=== PATIENT | female | born 1955 | race Caucasian/White ===

== ENCOUNTER → 2024-01-24 12:04 | Outpatient (REF) | payer MEDICARE, OTHER, SELFPAY | LOC: RAD 12:04 | PROVIDERS: ATTENDING PHYSICIAN Internal Medicine Gastroenterology; FAMILY PHYSICIAN Family Medicine | DX: K52.9 Noninfective gastroenteritis and colitis, unspecified (principal) | CPT/HCPCS: 74019 ==

== ENCOUNTER → 2024-03-05 06:34 | Day surgery (SDC) | payer MEDICARE, OTHER, SELFPAY | LOC: GI 06:34 | PROVIDERS: ATTENDING PHYSICIAN Internal Medicine Gastroenterology | DX: K57.30 Diverticulosis of large intestine without perforation or abscess without bleeding (principal); K64.8 Other hemorrhoids; R19.4 Change in bowel habit | CPT/HCPCS: 45380; 88305 ==

== ENCOUNTER → 2024-06-11 06:41 | Outpatient (REF) | payer MEDICARE, OTHER, SELFPAY | LOC: RAD 06:41 | PROVIDERS: ATTENDING PHYSICIAN Internal Medicine Gastroenterology; FAMILY PHYSICIAN Family Medicine | DX: R74.8 Abnormal levels of other serum enzymes (principal); R15.9 Full incontinence of feces | CPT/HCPCS: 74270 ==

== ENCOUNTER → 2024-07-03 06:46 | Outpatient (REF) | payer MEDICARE, OTHER, SELFPAY | LOC: RAD 06:46 | PROVIDERS: ATTENDING PHYSICIAN Family Medicine | DX: Z87.891 Personal history of nicotine dependence (principal) | CPT/HCPCS: 71271 ==

== ENCOUNTER 2024-07-13 06:12 | Day surgery (SDC) | payer MEDICARE, OTHER, SELFPAY ==
[2024-07-09 09:22] VITALS: BMI 28.0
[2024-07-10 11:08] VITALS: BMI 28.0
[2024-07-13] VITALS (9 sets, daily range): BP systolic 115–140; BP diastolic 71–88; BMI 27.6
== END 2024-07-13 14:55 | disposition home or self-care (01) ==
LOC: GI 06:12
PROVIDERS: ATTENDING PHYSICIAN Internal Medicine Critical Care Medicine
DX: C34.12 Malignant neoplasm of upper lobe, left bronchus or lung (principal); R91.8 Other nonspecific abnormal finding of lung field
CPT/HCPCS: 31629; 31652; 31628; 31624; 31627; 31623; 31654; 88173; 88305; 71045; 76000; 81459; 87070; 87077; 87102; 87116; 87185; 87205; 88112; 88333; 88341; 88342; 94640; C1887

== ENCOUNTER → 2024-08-05 18:54 | Outpatient (REF) | payer MEDICARE, OTHER, SELFPAY | LOC: MRI 18:54 | PROVIDERS: ATTENDING PHYSICIAN Internal Medicine Hematology & Oncology; FAMILY PHYSICIAN Family Medicine; OTHER PHYSICIAN Internal Medicine Critical Care Medicine; REFERRING PHYSICIAN Radiology Radiation Oncology | DX: C34.92 Malignant neoplasm of unspecified part of left bronchus or lung (principal) | CPT/HCPCS: 70553; A9575 ==

== ENCOUNTER → 2024-09-04 08:48 | Outpatient (REF) | payer MEDICARE, OTHER, SELFPAY | LOC: HWWDC 08:48 | PROVIDERS: ATTENDING PHYSICIAN Internal Medicine; FAMILY PHYSICIAN Family Medicine; REFERRING PHYSICIAN Obstetrics & Gynecology | DX: M81.0 Age-related osteoporosis without current pathological fracture (principal); Z12.31 Encounter for screening mammogram for malignant neoplasm of breast; Z51.81 Encounter for therapeutic drug level monitoring | CPT/HCPCS: 77063; 77067; 77080; 77081 ==

== ENCOUNTER 2024-10-07 04:50 | Inpatient (IN) | payer MEDICARE, OTHER, SELFPAY ==
[2024-09-17 08:34] VITALS: BMI 29.1
[2024-09-17 09:24] LABS: % Basophils 0.8 % (0-2); % Eosinophils 1.8 % (0-6); % Immature Granulocytes 0.3 % (0-0.5); % Monocytes 9.6 % (1.7-9.3); % Neutrophils 55.5 % (42.2-75.2); Absolute Eosinophils 0.1 10^3/uL (0-0.7); Absolute Lymphocytes 1.3 10^3/uL (1.2-3.4); Absolute Monocytes 0.4 10^3/uL (0.1-0.6); Absolute Neutrophils 2.2 10^3/uL (1.4-6.5); Hematocrit 35.3 % (37.0-47.0); Hemoglobin 12.1 g/dL (12.0-16.0); Mean Corp Hgb Conc. 34.3 g/dL (33.0-37.0); Mean Corpuscular Volume 93.4 fL (81.0-99.0); Mean Platelet Volume 10.2 fL (7.4-10.4); Nucleated Red Blood Cells % 0 %; Platelet Count 178 10^3/uL (130-400); Red Blood Cell Count 3.78 10^6/uL (4.20-5.40); Red Cell Dist. Width 11.9 % (11.5-14.5)
[2024-09-17 09:33] LABS: INR 0.84
[2024-09-17 10:22] LABS: ALT (SGPT) 58 U/L (0-35); AST (SGOT) 54 U/L (14-36); Albumin 4.5 g/dl (3.5-5.0); Alkaline Phosphatase 50 U/L (38-126); Blood Urea Nitrogen 15 mg/dl (7-17); Calcium 9.2 mg/dl (8.4-10.2); Carbon Dioxide 25 mmol/L (22-30); Chloride 100 mmol/L (98-107); Direct Bilirubin 0.1 mg/dl (0.0-0.4); Estimated Creatinine Clearance 93 ml/min; Glucose 86 mg/dl (70-99); Potassium 4.7 mmol/L (3.5-5.1); Sodium 131 mmol/L (135-145); Total Bilirubin 0.5 mg/dl (0.2-1.3); eGFR > 60.00
[2024-09-17 10:26] LABS: Glycohemoglobin (HgbA1c) 4.8 % (4.0-5.6)
--- NOTE | 2024-09-17 10:26 | CM ---
Chart reviewed. Met with the patient in PAT. Reviewed preoperative and postoperative instructions, along with showering guidelines. Gave patient 2 soaps. Patient is agreeable to a visit by CT Transitional RN. Patient is independent of ADLS,
lives with her friend and her friend's and son, in a 2 STH, 5 [place], 0 DME. Plan is for the patient to return home with her friend and CT Transitional RN.
[2024-09-17 10:45] LABS: Urine Albumin Negative (Neg - Trace); Urine Bilirubin Negative (Negative); Urine Character Clear (Clear); Urine Color Straw; Urine Glucose Negative (Negative); Urine Ketone Negative (Negative); Urine Leukocyte Negative (Negative); Urine Nitrite Negative (Negative); Urine Occult Blood Negative (Negative); Urine Specific Gravity 1.005 (<1.030); Urine Urobilinogen Negative (Neg - 1+); Urine pH 6.5 (5.0-9.0)
[2024-10-07] VITALS (16 sets, daily range): BP systolic 104–135; BP diastolic 64–88; BMI 27.0
--- NOTE | 2024-10-07 05:44 | PTCARENOTE ---
Addendum entered by Marleen Kendall RN 10/07/24 06:07:
Pt confirmed NPO status.
Original Note:
Pt admitted to room 2268. Pt oriented to room and changed into gown. Weight and VS obtained. Pt clipped and cleaned w/ CHG wipes. Admission questions completed. Home medications confirmed. ABG drawn and sent. Advanced directive copied and added to
chart. CTPA to see pt for updated H&P. Call ring within reach.
--- NOTE | 2024-10-07 05:57 | W.CVOR.SURPR ---
CVOR Surgeon Immed Pre Op
-
I have examined this patient prior to performance of the scheduled procedure.
The patient's condition is unchanged from the time of the dictated/written History and
Physical and the patient is able to undergo the scheduled procedure.
RATS AMISHA Segmentectomy vs Lobectomy + LN Dissection
[2024-10-07 07:21] LABS: Urine Albumin Negative (Neg - Trace); Urine Bilirubin Negative (Negative); Urine Character Clear (Clear); Urine Color Yellow; Urine Glucose Negative (Negative); Urine Ketone Negative (Negative); Urine Leukocyte Negative (Negative); Urine Nitrite Negative (Negative); Urine Occult Blood Negative (Negative); Urine Urobilinogen Negative (Neg - 1+)
--- NOTE | 2024-10-07 08:33 | CM ---
Reviewed chart. Miss Pinon is in the operating room today. Prior to admission she resides with her friend and friends family in a two story natalya with five steps to enter. Prior to admission she was independent with ambulation and adls. She does
not have any DME in the home. Medical work-up in progress. The discharge plan is to return home with her friend and friends family with a home visit by the Transitional Care Nurse when medically stable.
--- NOTE | 2024-10-07 10:04 | W.PN.CT.SURG ---
CT Surgery Operative Note
-
THORACIC SURGERY OPERATIVE REPORT
Preoperative Diagnosis: Adenocarcinoma of the left upper lobe
Postoperative Diagnosis: Same
Procedure(s) Performed:
1. Robotic assisted thoracic surgery (RATS) left upper lobe trisegmentectomy
2. Radical lymph node dissection
3. Intercostal nerve block with mepivacaine mixture interspaces 4 through 8
Date of Surgery: 10/07/2024
Comorbidities:
1. 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
2. Squamous cell carcinoma of the cervix
3. Remote history of gastric ulcer and chronic NSAID usage
4. Colonic polyps
5. Depression/anxiety
6. History of tobacco abuse, [id number] smoking history, quit in 2020
7. Family history of cancers
Attending Surgeon: Alton Joyce MD, MS
Assistants: Sabra Crooks PA-C (present and necessary to special event assistant, exchanging robotic instruments, retraction, suction, exposure, suture management, and wound closure under my direction)
Anesthesiology: Suresh Chavez MD and Ariella Madrid CRNA
Scrub and Circulating RNs: Mitzy Stoner RN, Evette Stacy RN
Anesthesia: Dual Lumen GETA
EBL: 60 cc
Products: None
Indication(s) for Procedures: This is a 68-year-old female who was found to have a left upper lobe irregularly shaped lesion that underwent a robotic luminal bronchoscopy. Biopsy results came back as adenocarcinoma. TBNA and lavage also came back
as positive for malignancy. PET/CT imaging and EBUS evaluation of the lymph nodes did not reveal any adenopathy. She was referred to me for consideration of left upper lobe resection with lymph node evaluation.
Findings: There were no intraoperative intrathoracic lesions concerning for metachronous disease. She had well-defined fissures. Given the location of the left upper lobe lesion in the apex, we were able to perform a trisegmentectomy using
perfusion lines with ICG to demarcate the arterial branches perfusing the S1/S2/S3 segments of the left upper lobe. There was no air leak at the conclusion of the case, her hilum was reinforced with CoSeal. Multiple lymph nodes were harvested from
around her hilum and very stations. The remaining lingular segment of her left upper lobe inflated fully at the conclusion of the case. The remaining left lower lobe inflated fully at the conclusion of the case.
Specimen(s):
Station 9, x 4 nodes
Station 8, x 1 nodes
Station 10, x 3 nodes
Station 11, x 3 nodes
Station 5/6, x 1 nodes
Station 7, x 1 nodes
Left upper lobe trisegmentectomy [S1/S2/S3] lobe - on manual palpable, there was a significant margin from the target
Description of Procedure: The patient was taken to the operating room. Induction via general anesthesia with endotracheal intubation was performed and peripheral venous access and arterial monitoring were inserted. Their identity and procedure to be
performed were verified and they were positioned with the left side up on the operating table. The patient was then prepped and draped in a sterile fashion. A preoperative time-out was performed with all members of the team present. A Veress needle
was used to insufflate the chest after isolating the lung. An 8 mm port was placed in the midaxillary line at approximately the eighth intercostal space and confirmed to be intrathoracic without significant pulmonary injury. The chest was surveyed
for any evidence of metastatic disease. Patient tolerate insufflation without complication. 2 additional 12 mm trocars were placed on either side under camera guidance and a third 8 mm trocar was placed along the back. A 12 mm assistant pressman port was
placed in the 11th intercostal space above the insertion of the diaphragm. An intercostal nerve block was performed at intercostal spaces 4 through 8 with 5cc in each space.
The thoracic cavity was inspected for evidence of metastatic disease. None was observed. We started with mobilization of the inferior pulmonary ligament. We worked our way clockwise dissecting out the hilum and harvest any lymph nodes identified.
Once the posterior hilum was dissected, I worked toward the fissure which was well defined. At this point the posterior ascending was isolated along with the pulmonary veins leading to the apical segment of the lung. The lingular segmental arteries
were visualized and spared. The posterior ascending was first dividied, followed the superior segment veins. This allowed access to the trucus pulmonary artery which was bifurcating. This was divided. Next the bronchus to the upper segment was
clamped and test inflation was performed and found unobstructed flow to the remaining left lower lobe and the remaining lingular segment of the left upper lobe. At this point under firelfy, ICG was injected, and perfusion lines were defined
isolating the upper trisegment. I then divided the lung parenchyma with 60mm green load staplers. The specimen was displaced toward the apex while a chest tube was inserted and placed laterally towards the apex. CoSeal was used to reinforce the
staple lines and hilum. The segment was then placed into a specimen bag and extracted from the chest cavity. After confirming hemostasis, the lung was fully inflated and all ports were removed. Incisions were closed in 3 layers including the
fascia, dermal, and epidermis. Additional local anesthesia was injected into all incision sites. The skin wound was cleansed and sealed with Dermabond glue.
All instrument, sponge, and needle counts were confirmed to be correct x 2 at the end of the operation. The patient was transferred to the cardiac intensive care unit extubated in critical but stable condition.
I, Dr. Alton Joyce, was present, scrubbed for, and performed all critical elements of this procedure.
Alton Joyce MD, MS
Cardiothoracic Surgeon
[facility]
This operative dictation was created using the [employer] dictation system. Please excuse any grammatical, typographical, or 'sound alike' errors
[2024-10-07] MEDS: DILAUDID 0.5 MG IV ×4 (10:44→19:56)
[2024-10-07] MEDS: SENOKOT PO (11:40)
[2024-10-07] MEDS: FEOSOL PO (11:40)
[2024-10-07] MEDS: VITAMIN D3 (cholecalciferol) PO (11:41)
[2024-10-07] MEDS: THERAGRAN PO (11:41)
[2024-10-07] MEDS: ANCEF IV (11:44)
--- NOTE | 2024-10-07 12:15 | PTCARENOTE ---
Received pt from [employer], JEN x 3, denies complaint at present. NSR w/ first degree AVB on monitor. 3 L NC 100% . Chest tube x 1 to water seal. No air leaks or crepitus noted. Surgical sites well approximated with surgical adhesive. Old
drainage noted on CT dressing. VSS. EKG obtained. Friend at bedside.
--- NOTE | 2024-10-07 12:35 | CON.PUL ---
Consultation
Consultation Request
Date/Time Consultation Requested: 10/07/2024
Date/Time Consultation Performed: 10/07/2024
Performing Provider: Donnie
Reason for Consultation: Nodule biopsy
Medical History
-
History of Present Illness:
Patient is a 68-year-old female with previous history of recently diagnosed primary lung adenocarcinoma status post robotic bronchoscopy biopsy on 07/13/2024. Outpatient PET scan demonstrating no evidence of mediastinal disease or distant
metastases. She presents for elective left upper lobectomy as part of her curative treatment. Underwent robotic assisted thoracic surgery with left upper lobe tries segmentectomy with radical lymph node dissection on 10/07/2024, postoperatively
[facility].
Follows with Dr Connors in the office.
Past Medical History
Past Medical History: Other (see list below)
Social History
Tobacco: Former Smoker
Alcohol: None
Drug: None
Family History
Family History: Reviewed & Not Pertinent
Allergies / Home Medications
Allergies
Allergy/AdvReac Type Severity Reaction Status Date / Time
latex Allergy Rash Verified 09/14/24 09:24
Home Medications
�Medication �Instructions �Recorded �Confirmed �Last Taken �Type
gabapentin 600 mg tablet 400 mg PO TID 07/11/16 10/07/24 09/29/24 History
ascorbic acid (vitamin C) 1,000 mg 1 g PO DAILY 07/10/24 10/07/24 09/29/24 History
tablet (Vitamin C)
cholecalciferol (vitamin D3) 50 50 mcg PO DAILY 07/10/24 10/07/24 09/29/24 History
mcg (2,000 unit) tablet (Vitamin
D3)
daridorexant 25 mg tablet (Quviviq) 50 mg PO HS 07/10/24 10/07/24 08/30/24 History
estradiol 0.5 mg tablet 0.5 mg PO DAILY 07/10/24 10/07/24 09/08/24 History
lorazepam 1 mg tablet (Ativan) 1 mg PO PRN PRN anxiety 07/10/24 10/07/24 09/23/24 History
mecobalamin (vitamin B12) 1,000 1,000 mcg sublingual DAILY 07/10/24 10/07/24 09/29/24 History
mcg disintegrating
tablet,sublingual
medroxyprogesterone 2.5 mg tablet 2.5 mg PO DAILY 07/10/24 10/07/24 09/08/24 History
multivitamin 1 tab PO DAILY 07/10/24 10/07/24 09/29/24 History
vitamin B complex 1 cap PO DAILY 07/10/24 10/07/24 09/29/24 History
vitamin K2 100 mcg capsule 100 mcg PO DAILY 07/10/24 10/07/24 09/29/24 History
denosumab 60 mg/mL subcutaneous 60 mg SC [id number] 09/14/24 09/14/24 09/11/24 History
syringe (Prolia)
ferrous sulfate 325 mg (65 mg 325 mg PO DAILY 09/14/24 10/07/24 Unknown History
iron) tablet (Iron (ferrous
sulfate))
Review of Systems
-
History Source: Patient
All other systems: Negative unless noted
Vitals / Labs / Diagnostic Testing
Vital Signs
Temp Pulse Resp BP Pulse Ox
98.6 F 65 20 119/76 100
10/07/24 12:00 10/07/24 12:00 10/07/24 12:00 10/07/24 11:45 10/07/24 12:00
Lab Data
09/17/24 09:06
09/17/24 09:06
Diagnostic Testing:
Physical Exam
-
HEENT: Normocephalic, Anicteric and Moist Mucous Membranes
Cardiovascular: S1/S2 and Regular Rhythm
Respiratory: Clear, Non-Labored Respirations and Other (chest tube)
GI: Soft, Non Distended and Non Tender
Neurology: Awake, Alert, Oriented and No Motor Deficits
Skin: Warm, Dry and Good Color
General: Comfortable and Other (NAD)
Assessment
-
Patient is a 68-year-old female with previous history of recently diagnosed primary lung adenocarcinoma status post robotic bronchoscopy biopsy on 07/13/2024. Outpatient PET scan demonstrating no evidence of mediastinal disease or distant
metastases. She presents for elective left upper lobectomy as part of her curative treatment. Underwent robotic assisted thoracic surgery with left upper lobe tries segmentectomy with radical lymph node dissection on 10/07/2024, postoperatively
transferred to [facility] for recovery.
Primary lung adenoca s/p RATS/left upper lobe tries segmentectomy with radical lymph node dissection on 10/07/2024
Postop iatrogenic PTX s/p chest tube
Lung nodule status post bronchoscopy 07/13/2024
Conditions present prior to admission
Squamous cell carcinoma status post vulvectomy x 2/HPV+
Remote history of gastric ulcer and chronic NSAID usage
GERD
Colonic polyps
Depression/anxiety
History of tobacco abuse, [id number] smoking history, quit in 2020
Hepatitis C
Insomnia
Lumbar radiculopathy
Plan
No oxygen was needed on admission, currently saturating >90% on RA
Prior history of lung disease is noted including former smoker/lung cancer
Prior PFTs obtained in the office demonstrated normal lung function
Recently diagnosed with primary lung adenocarcinoma following bronchoscopy 07/13/2024
Underwent left upper lobectomy without significant complication 10/07/2024
Chest tube in place, further management per team
Prior imaging reviewed
Pain control, out of bed when tolerated
Diet advancement per team
No prior cardiac history not maintained on medications
No prior echo for review
Smoking history noted-50 pack years
Encourage continued smoking cessation
She is being followed by [place] as well for further treatments and neck steps as an outpatient
Will need outpatient pulmonary evaluation in our office at regular routine visit
Reviewed with patient
We will follow
Diagnostic Data
Chest X-Ray: 10/07/24- No acute disease of the chest.
CT Scan: PET/CT 07/23/24- There is a 2.5 cm linear nodular area of parenchymal airspace disease in the apical segment of the left upper lobe consistent with the patient's known previously biopsied adenocarcinoma. This lesion measures only 2.1 SUV
max suggesting probable low-grade malignancy. There are no other focal areas of abnormal FDG avidity in the chest. As on the prior CT examination, there is mild subpleural interstitial fibrosis. The smaller subpleural nodules seen on the 07/09/2024
CT chest are not well visualized on this examination and are below the lower limits of PET evaluation.
There is no FDG avid adenopathy in the chest.
Echo:
PFT's: 09/07/2024-FEV1 3.06 L 129%, FVC 4.2 L 135%, ratio 73. TLC 5.73 L 116% DLCO 82%-normal
Reports and relevant images were personally reviewed.
Total time spent on this consultation __75__ minutes which includes review of history, physical exam, medications, laboratory data, personal review of imaging, extensive review of outpatient records, discussion with care team and respiratory therapy.
[2024-10-07] MEDS: VITAMIN C PO (13:04)
[2024-10-07] MEDS: HEPARIN SC (13:12)
[2024-10-07] MEDS: ANCEF 10 IV (13:12)
[2024-10-07] MEDS: TORADOL 15 MG IV ×2 (13:12→23:24)
[2024-10-07] MEDS: ANCEF 5 IV ×2 (15:45→23:23)
[2024-10-07] MEDS: NEURONTIN 400 MG PO ×2 (15:50→22:15)
--- NOTE | 2024-10-07 18:24 | PTCARENOTE ---
OOb ambulated to bathroom with assist x 1 on room air. Tolerated w/o issue no dumping noted from chest tube. OLdr drainage marked on dressing site. Pain at acceptable level post level after dilaudid.
[2024-10-07] MEDS: HEPARIN 5000 UNITS SC (19:57)
[2024-10-07] MEDS: SENOKOT 8.6 MG PO (19:58)
--- NOTE | 2024-10-07 20:00 | PTCARENOTE ---
Assumed care of patient at 1900. Patient found resting in bed at time of assessment. Patient is AOx4, follows commands appropriately, moves all extremities. Lung sounds are diminished in the L base, saO2 94% on RA, L posterior CT attached to water
seal. Patient is SR with first deg AV block, has normal palpable pulses and no observable edema. Patient has active BS throughout all four quadrants and is voiding clear yellow in the bathroom. There is a 4x4 gauze dressing present over L back where
CT is located with some sanguineous drainage CT PAs aware. There is a R FA 18G PIV and L FA 18G PIV available for intermittent infusion. VSS. Given 0.5 dilaudid for pain. Call ring within reach.
--- NOTE | 2024-10-08 00:46 | PTCARENOTE ---
assumed care of pt from 7-11 RN. plan of care discussed. L CT site with noted drainage present at time of walking rounds w/o tidaling, crepitus. Small air leak noted. x4 puncture sites CDI, AIR HOLE DRILLER with Surgi glue present. PRN pain medication provided
as needed. Pt verbalized understanding of plan. SR with first degree on the monitor. Use of IS encouraged.
--- NOTE | 2024-10-08 01:10 | PTCARENOTE ---
- late entry: assumed care of pt from 7-11 RN. plan of care discussed. L CT site with noted drainage present at time of walking rounds w/ tidaling but no crepitus or air leak. x4 puncture sites CDI, ASHLYN with Surgi glue present. PRN pain medication
provided as needed. Pt verbalized understanding of plan. SR with first degree on the monitor. Use of IS encouraged.
[2024-10-08] MEDS: ROXICODONE 2.5 MG PO ×3 (02:25→12:11)
[2024-10-08 02:37] VITALS: BP 129/74
[2024-10-08 02:48] LABS: Hematocrit 32.2 % (37.0-47.0); Hemoglobin 11.4 g/dL (12.0-16.0); Mean Corp Hgb Conc. 35.4 g/dL (33.0-37.0); Mean Corpuscular Hgb 32.6 pg (27.0-31.0); Mean Platelet Volume 10.5 fL (7.4-10.4); Platelet Count 161 10^3/uL (130-400); Red Cell Dist. Width 12.3 % (11.5-14.5); White Blood Cell Count 8.1 10^3/uL (4.8-10.8)
[2024-10-08 03:15] LABS: Blood Urea Nitrogen 13 mg/dl (7-17); Calcium 8.3 mg/dl (8.4-10.2); Carbon Dioxide 20 mmol/L (22-30); Chloride 101 mmol/L (98-107); Estimated Creatinine Clearance 89 ml/min; Glucose 101 mg/dl (70-99); Magnesium 2.2 mg/dl (1.6-2.3); Potassium 4.8 mmol/L (3.5-5.1); Sodium 129 mmol/L (135-145); eGFR > 60.00
--- NOTE | 2024-10-08 04:44 | W.PN.CT ---
Today's Communication / Plan
-
-pod #1
-no issues overnight
-CXR this am appears stable
-L CT on WS postop. Had small air leak with cough last night and no air leak this am
-follow CXR
Assessment / Plan
-
- s/p Robotic assisted thoracic surgery (RATS) left upper lobe trisegmentectomy; Radical lymph node dissection on 10/07/[address] Joyce, pod #1
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
- Squamous cell carcinoma of the cervix
- Remote history of gastric ulcer and chronic NSAID usage
- Colonic polyps
- Depression/anxiety
- History of tobacco abuse, [id number] smoking history, quit in 2020
- Family history of cancers
- Acute postop atelectasis
Discussed patient care with: Nursing and Care Team
Subjective
-
Date of Service: October 08, 2024
Objective Data
-
Lab Results
10/08/24 02:33
10/08/24 02:33
PT 12.0 Sec (11.4-14.6) 09/17/24 09:06
INR 0.84 09/17/24 09:06
APTT 30.0 Sec (23.4-35.0) 09/17/24 09:06
Vital Signs
Vital Signs
Temp Pulse Resp BP Pulse Ox
98.8 F 59 18 129/74 95
10/08/24 02:50 10/08/24 02:37 10/08/24 02:50 10/08/24 02:37 10/08/24 02:[address]
CT Intake/Output/Weight
10/07/24 10/07/24 10/08/24
06:59 18:59 06:59
Intake Total 630 / 870 240 / 870
Output Total 110 / 1430 1320 / 1430
Balance 520 / -560 -1080 / -560
SaO2: 95
Physical Exam
-
General: Awake and AOx3
Cardiovascular: Regular rate & rhythm, No Murmurs and No Rub
Respiratory: Clear and Decreased Breath Sounds
Incision: Dressing Intact (old drainage on dressing without change)
Extremities: No Edema
Abdomen: soft, nontender, nondistended, + bowel sounds
Data Reviewed
-
Lab Results: Results Reviewed
Medications: Active Meds Reviewed
Chest X-Ray: Report Reviewed and Image Reviewed
ECG: Report Reviewed and Image Reviewed
--- NOTE | 2024-10-08 07:17 | W.PN.PUL3 ---
Today's Communication / Plan
-
Doing well, stable on RA, sitting in chair
Chest tube with minimal leak, discontinue per team
Pain control, encouraged OOB/IS
Discharge planning once chest tube is discontinued
FU OP Pulm office
Assessment
-
Patient is a 68-year-old female with previous history of recently diagnosed primary lung adenocarcinoma status post robotic bronchoscopy biopsy on 07/13/2024. Outpatient PET scan demonstrating no evidence of mediastinal disease or distant
metastases. She presents for elective left upper lobectomy as part of her curative treatment. Underwent robotic assisted thoracic surgery with left upper lobe tries segmentectomy with radical lymph node dissection on 10/07/2024, postoperatively
transferred to [facility] for recovery.
Primary lung adenoca s/p RATS/left upper lobe tries segmentectomy with radical lymph node dissection on 10/07/2024
Postop iatrogenic PTX s/p chest tube
Lung nodule status post bronchoscopy 07/13/2024
Conditions present prior to admission
Squamous cell carcinoma status post vulvectomy x 2/HPV+
Remote history of gastric ulcer and chronic NSAID usage
GERD
Colonic polyps
Depression/anxiety
History of tobacco abuse, 66-[id number]-uvob smoking history, quit in 2020
Hepatitis C
Insomnia
Lumbar radiculopathy
Plan
No oxygen was needed on admission, currently saturating >90% on RA
Prior history of lung disease is noted including former smoker/lung cancer
Prior PFTs obtained in the office demonstrated normal lung function
Recently diagnosed with primary lung adenocarcinoma following bronchoscopy 07/13/2024
Underwent left upper lobectomy without significant complication 10/07/2024
Chest tube in place, further management per team -- clamp and discontinue possibly later this PM
Prior imaging reviewed
Pain control, out of bed when tolerated
Diet advancement per team
No prior cardiac history not maintained on medications
No prior echo for review
Smoking history noted-50 pack years
Encourage continued smoking cessation
She is being followed by [place] as well for further treatments and neck steps as an outpatient
Will need outpatient pulmonary evaluation in our office at regular routine visit
Reviewed with patient
Diagnostic Data
Chest X-Ray: 10/07/24- No acute disease of the chest.
CT Scan: PET/CT 07/23/24- There is a 2.5 cm linear nodular area of parenchymal airspace disease in the apical segment of the left upper lobe consistent with the patient's known previously biopsied adenocarcinoma. This lesion measures only 2.1 SUV
max suggesting probable low-grade malignancy. There are no other focal areas of abnormal FDG avidity in the chest. As on the prior CT examination, there is mild subpleural interstitial fibrosis. The smaller subpleural nodules seen on the 07/09/2024
CT chest are not well visualized on this examination and are below the lower limits of PET evaluation.
There is no FDG avid adenopathy in the chest.
Echo:
PFT's: 09/07/2024-FEV1 3.06 L 129%, FVC 4.2 L 135%, ratio 73. TLC 5.73 L 116% DLCO 82%-normal
Reports and relevant images were personally reviewed.
Total time spent on this encounter __51__ minutes which includes review of history, physical exam, medications, laboratory data, personal review of imaging, extensive review of outpatient records, discussion with care team and respiratory therapy.
Subjective Data
-
Date of Service:
Date of Service: October 08, 2024
Chief Complaint: Pulmonary Follow Up
Subjective:
no events ON, sitting in chair
stable on RA, chest tube in place with minimal leak
Objective Data
Data Reviewed
Vital Signs / I&O / Oxygen:
Vital Signs
Temp Pulse Resp BP Pulse Ox
98.8 F 59 18 129/74 95
10/08/24 02:50 10/08/24 02:37 10/08/24 02:50 10/08/24 02:37 10/08/24 04:49
Intake and Output
10/07/24 10/08/24 10/09/24
06:59 06:59 06:59
Intake Total 870 / 870
Output Total 1460 / 1460
Balance -590 / -590
SaO2 95
Nasal Cannula flow liters per 2
minute
Physical Exam
General: Comfortable and Other (NAD)
HEENT: Normocephalic, Anicteric and Moist Mucous Membranes
Cardiovascular: S1-S2 and Regular Rhythm
Respiratory: Clear, Non-Labored Respirations and Chest Tube
GI: Soft, Non Distended and Non Tender
Neurology: Awake, Alert, Oriented and No Motor Deficits
Skin: Warm, Dry and Good Color
Labs/Micro/Reports
Lab Data
10/08/24 02:33
10/08/24 02:33
[2024-10-08 07:28] VITALS: BMI 27.7
[2024-10-08 07:52] VITALS: BP 125/79
[2024-10-08] MEDS: LIDOCAINE 4% PATCH 1 PATCH TOPICAL (09:10)
[2024-10-08] MEDS: FEOSOL 325 MG PO (09:11)
[2024-10-08] MEDS: VITAMIN B-12 1000 MCG PO (09:11)
[2024-10-08] MEDS: VITAMIN C 1000 MG PO (09:11)
[2024-10-08] MEDS: SENOKOT 8.6 MG PO (09:11)
[2024-10-08] MEDS: LOPRESSOR 12.5 MG PO (09:11)
[2024-10-08] MEDS: NEURONTIN 400 MG PO ×2 (09:11→15:50)
[2024-10-08] MEDS: THERAGRAN 1 TABLET PO (09:12)
[2024-10-08] MEDS: HEPARIN 5000 UNITS SC (09:12)
[2024-10-08] MEDS: VITAMIN D3 (cholecalciferol) 50 MCG PO (09:12)
[2024-10-08] MEDS: FLUSH (NSS) 1 FLUSH IV (09:12)
[2024-10-08] MEDS: LASIX 40 MG IV (09:13)
[2024-10-08] MEDS: ANCEF 5 IV (09:13)
--- NOTE | 2024-10-08 09:40 | PTCARENOTE ---
assumed care of pt from previous shift RN, sinus rhythm on tele, VSS. + peripheral pulses, no edema noted. Lungs diminished, pox 95% on RA. +bs, tolerating PO intake. Voids spontaneously, adequate. Right pleural CTs to water seal, pt medicated for
pain. plan of care reviewed and questions encouraged.
--- NOTE | 2024-10-08 10:48 | CM ---
Reviewed chart. Met with Miss Pinon to review discharge plans. She states she is feeling well. She states she ambulated to the bathroom and she felt steady. She states prior to admission she resides with her friend, friends spouse and their 16 year
old son. She states they reside in a three story home with four steps to enter. She states she has to go up a full flight of steps to ge to bedroom/full bathroom. She states prior to admission she was independent with ambulation and adls. She
states she has a single point cane at home, but currently not using it. She states she has a Prescription plan and uses [facility]. She states her friend, Elba will be home Saturday, Saturday and Saturday to assist in her care if needs. Elba works
outside the home but is very close to the house. We reviewed a home visit by the Transitional Care Nurse. She is agreeable to a home visit. Medical work-up in progress. The discharge plan is to return home with her friends family and a home visit
by the Transitional Care Nurse when medically stable.
[2024-10-08] MEDS: TORADOL 15 MG IV (12:10)
[2024-10-08 12:20] VITALS: BP 114/83
--- NOTE | 2024-10-08 12:28 | PTCARENOTE ---
VSS, sinus rhythm on tele, pt medicated for pain, minimal output from CT.
[2024-10-08 15:38] VITALS: BP 112/76
--- NOTE | 2024-10-08 16:07 | PTCARENOTE ---
pt tolerated walk, VSS, sinus rhythm maintained on tele. CT remains clamped.
--- NOTE | 2024-10-08 17:44 | W.PN.UPDATE ---
Update Note
Progress Note Update
AMISHA chest tube was clamp for several hours. Repeat CXR did not show a large ptx. Plan was discussed with Dr. Joyce. CT was removed with suction. Pull was uneventful and green stitch was tied down. Patient will get a repeat CXR in one week and get her
stitch removed at her next office visit.
Patient will be discharged later tonight and was instructed to return to the ER if she has difficulty breathing or increased crepitus. She expressed understanding.
[2024-10-08 17:45] VITALS: BP 130/80
--- NOTE | 2024-10-08 18:40 | PTCARENOTE ---
CT removed by CT BELLA. IV lines and tele monitor removed. Discharge instructions, medication list and follow up appointments reviewed w the pt and questions encouraged.
--- NOTE | 2024-10-08 18:42 | W.DCSUMMARY ---
Discharge Summary
Discharge Data
Date of Admission: 10/07/24
Date of Discharge: 10/08/24
Total time spent discharging patient (in min): 35
-
Pending Results: No
Hospital Course
Primary care physician:
Dr. Lindo
Outpatient wall attendant:
Dr. Connors
Inpatient consultants:
Pulmonary
Procedures:
1. Robotic assisted thoracic surgery (RATS) left upper lobe trisegmentectomy
Primary Diagnosis:
1. 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
Secondary Diagnoses:
1. Squamous cell carcinoma of the cervix
2. post-operative fluid overload
3. Remote history of gastric ulcer and chronic NSAID usage
4. Colonic polyps
5. Depression/anxiety
6. History of tobacco abuse, [id number] smoking history, quit in 2020
7. Hyponatremia
HPI: 68-year-old female who was found to have a left upper lobe irregularly shaped lesion that underwent a robotic luminal bronchoscopy presented electively on 10/07 for AMISHA trisegmentectomy with Dr. Joyce
Hospital course: Patient presented electively to [facility] for a segment ectomy with Dr. Joyce. Procedure went well and postoperatively she returned to PACU for her postop care. Chest x-ray did not show a pneumothorax and her chest tube
was placed to waterseal. Later she was sent to the CVICU for the remainder of her care. As she woke up her blood pressure recovered and her arterial line was removed. She was also started on Lopressor for A-fib prevention postoperatively which
she tolerated well. On 10/08 postoperative day 1 patient's morning chest x-ray showed mild increase of crepitus however on exam she did not have a air leak. She was observed throughout the day and was later placed on a clamp trial. Several hours
later repeat chest x-ray was performed and there was no increase in a pneumothorax. Therefore the chest tube was removed uneventfully and patient was discharged home with a follow-up chest x-ray in 1 week. She was instructed on signs and symptoms
to be aware of if there was a need to return to the emergency room and she expressed understanding.
Home medication changes:
see Below
Discharge Plan
-
Patient Disposition: Home (Routine Discharge)
Discharge Diagnosis/Procedures: RATS Left upper lobe trisegmentectomy with radical lymph node dissection
Condition: Good
Diet: Regular
Activity: As tolerated
Driving Restrictions: No driving while still taking narcotics
Bathing Restrictions: OK to Shower
Others Tests: CXR in 1 week
Specialty Instructions: Weigh Daily- Call MD for wt gain/loss 3 lbs overnight/5 lbs in 1 week
Activity Restrictions/Additional Instructions:
ACTIVITY:
-No strenuous activity: no heavy lifting, pushing, pulling anything over 15 pounds for 2 weeks.
DRIVING RESTRICTIONS:
-No driving for while on narcotics
WOUND CARE:
-Shower daily. Use soap & water.
-No lotions, creams or powders on incision area.
DIET:
-continue a your regular diet
SPECIALTY INSTRUCTIONS:
-Weigh yourself daily. Call your physician for any weight gain/loss of 3 lbs overnight or 5 lbs in one week.
-If you smoke, you are instructed to quit. The [place] smoking hotline phone number is [phone]
Referrals:
CT Transitional Care Nurse [Outside] - in one to two days
(
The Cardiothoracic Transitional Care Nurse will call you to set up a visit in 1-2 days.)
Lee Connors MD [Active] - (at next routine visit)
Reggie Lindo DO [Family Provider] - in four to six weeks (Please make an appointment in four to six weeks. )
Alton Joyce MD [Active] - 11/09/24 1:15 pm
Additional Discharge Medication Instructions: You will be started on a medication called lojeferson to control your heart rate and blood pressure for 30 days post-op
Prescriptions:
New
acetaminophen 325 mg Tablet
650 mg PO Q4HPRN PRN (Reason: mild pain,headache,temp >101F ) Qty: 0 0RF
oxycodone 5 mg Tablet
2.5 mg PO Q4HPRN PRN (Reason: moderate to severe pain) Qty: 7 0RF
metoprolol succinate [Toprol XL] 25 mg tablet extended release 24 hr
12.5 mg PO DAILY Qty: 30 0RF
Continued
gabapentin 600 MG tablet
400 mg PO TID
multivitamin Tablet
1 tab PO DAILY
ascorbic acid (vitamin C) [Vitamin C] 1,000 mg Tablet
1 g PO DAILY
estradiol 0.5 mg Tablet
0.5 mg PO DAILY
lorazepam [Ativan] 1 mg Tablet
1 mg PO PRN PRN (Reason: anxiety)
vitamin B complex Capsule
1 cap PO DAILY
cholecalciferol (vitamin D3) [Vitamin D3] 50 mcg (2,000 unit) Tablet
50 mcg PO DAILY
mecobalamin (vitamin B12) 1,000 mcg Tablet,Disintegrating
1,000 mcg SUBLINGUAL DAILY
vitamin K2 100 mcg Capsule
100 mcg PO DAILY
Quviviq 25 mg Tablet
50 mg PO HS
medroxyprogesterone 2.5 mg Tablet
2.5 mg PO DAILY
ferrous sulfate [Iron (ferrous sulfate)] 325 mg (65 mg iron) Tablet
325 mg PO DAILY
Prolia 60 mg/mL Syringe
60 mg SC [id number]
Discharge Orders:
Discharge Patient (As Directed); Ordered 10/08/24
Ordered By: Nette Short
Care Plan Goals
Care Plan Goals:
Problem: Readiness for enhanced knowledge related to diagnosis and treatment plan
Goal: Understand your diagnosis and treatment plan needs, including medications if applicable.
Instructions: Know your diagnosis, underlying causes and treatment plan options, including medications if applicable. Consult with your health care team to learn about your diagnosis and treatment plan, including medications if applicable.
Discharge Date and Time
Print Language: WELSH
== END 2024-10-08 18:44 | disposition home or self-care (01) | DRG 164 ==
LOC: CVICU 04:50
PROVIDERS: Clinical Nurse Specialist Acute Care; ADMITTING PHYSICIAN Thoracic Surgery (Cardiothoracic Vascular Surgery); FAMILY PHYSICIAN Family Medicine; OTHER PHYSICIAN Internal Medicine
PROC: 0BTG4ZZ Resection of Left Upper Lung Lobe, Percutaneous Endoscopic Approach (ICD-10-PCS; 2024-10-07)
PROC: 07T74ZZ Resection of Thorax Lymphatic, Percutaneous Endoscopic Approach (ICD-10-PCS; 2024-10-07)
DX: C34.12 Malignant neoplasm of upper lobe, left bronchus or lung (principal); E87.1 Hypo-osmolality and hyponatremia; J95.811 Postprocedural pneumothorax; J98.11 Atelectasis; F32.A Depression, unspecified; F41.9 Anxiety disorder, unspecified; Y83.6 Removal of other organ (partial) (total) as the cause of abnormal reaction of the patient, or of later complication, without mention of misadventure at the time of the procedure; M54.16 Radiculopathy, lumbar region; E87.70 Fluid overload, unspecified; K21.9 Gastro-esophageal reflux disease without esophagitis; Z79.899 Other long term (current) drug therapy; Z85.41 Personal history of malignant neoplasm of cervix uteri; Z87.11 Personal history of peptic ulcer disease; Z87.891 Personal history of nicotine dependence
CPT/HCPCS: 88305; 88309; 32505; 36415; 71045; 80048; 80053; 81003; 82248; 83036; 83735; 85025; 85027; 85610; 85730; 86850; 86900; 86901; 87070; 93005

== ENCOUNTER → 2024-10-15 09:15 | Outpatient (REF) | payer MEDICARE, OTHER, SELFPAY | LOC: RAD 09:15 | PROVIDERS: ATTENDING PHYSICIAN Thoracic Surgery (Cardiothoracic Vascular Surgery) | DX: Z09 Encounter for follow-up examination after completed treatment for conditions other than malignant neoplasm (principal) | CPT/HCPCS: 71046 ==

== ENCOUNTER → 2025-07-05 11:04 | Outpatient (REF) | payer MEDICARE, OTHER, SELFPAY | LOC: HWRAD 11:04 | PROVIDERS: ATTENDING PHYSICIAN Internal Medicine Critical Care Medicine; FAMILY PHYSICIAN Family Medicine | DX: Z87.891 Personal history of nicotine dependence (principal) | CPT/HCPCS: 71271 ==

== ENCOUNTER → 2025-08-19 14:01 | Outpatient (REF) | payer MEDICARE, OTHER, SELFPAY | LOC: HWRCS 14:01 | PROVIDERS: ATTENDING PHYSICIAN Family Medicine | DX: I31.9 Disease of pericardium, unspecified (principal) | CPT/HCPCS: 93306 ==